=== PATIENT | female | born 1960 ===

== ENCOUNTER 2025-02-14 12:02 | Outpatient (AMB) | payer MEDICARE, SELFPAY ==
--- NOTE | 2025-02-14 12:10 | A.OFFVIS_ITS ---
Vital Signs 02/14/25 12:12 Pulse 60 Intake Visit Reasons: 6 Months/ [facility] Allergies No Known Allergies Allergy (Verified 02/07/25 09:20) Medication List - Last Reconciled 02/14/25 by Migue Manzano MD propranolol ER 60 mg PO DAILY HPI Comments Details: The patient is a 68-year-old female presenting with a tremor. She has noted an improvement in the severity of the tremor compared to her previous visit. She is prescribed propranolol at a 60 mg daily dosage on an extended-release basis. The patient's subjective experience of her tremor suggests some remaining presence, although not currently causing significant distress. There were no additional details provided regarding the onset or other specifics of the tremor's impact on her life. [facility] Medical History (Updated 02/14/25 @ 12:11 by Migue Manzano MD) Benign familial tremor Review of Systems Const Details: - Neurologic: Reports improvement in tremor; taking propranolol 60 mg daily Physical Exam Neuro Other: Mental Status: Alert and oriented to person, place, and time. Normal attention. Normal spontaneous speech, fluency, and comprehension. No obvious issues with mood and memory. Affect is appropriate. Cranial Nerves: CN II: Visual hale full to confrontation, visual acuity intact. CN III, IV, : Pupils equal, round, reactive to light and accommodation. Extraocular movements are normal. CN V: Facial sensation is normal. CN VII: Facial movements symmetrical. CN VIII: Hearing intact to bedside conversation is normal. CN IX, X: Palate elevates symmetrically. CN XI: Shoulder shrug and head turn symmetrical. CN XII: Tongue midline without atrophy or fasciculations. Mild speech tremor and mild postural hand tremor Assessment & Plan Assessment & Plan (1) Benign essential tremor: Code(s): G25.0 - Essential tremor Category: Medical Plan Impression: Benign essential tremor Rec: Propranalol ER 60mg one a day Medications: New propranolol ER 60 mg PO DAILY 90 caps 3RF Coding Level of Care Code Est Pt Level 3 (37642) Diagnoses Benign essential tremor G25.0
[2025-02-14 12:12] VITALS: PULSE 60
== END 2025-02-14 12:13 | disposition home or self-care (01) ==
LOC: HO.HSM 12:02
PROVIDERS: PCP Internal Medicine; Referring Provider Internal Medicine; Visit Provider Psychiatry & Neurology Neurology
DX: G25.0 Essential tremor (principal)
CPT/HCPCS: 99213

== ENCOUNTER → 2025-02-14 12:02 | Outpatient (BNVA) | payer MEDICARE, SELFPAY | PROVIDERS: PCP Internal Medicine; Referring Provider Internal Medicine; Visit Provider Psychiatry & Neurology Neurology | DX: G25.0 Essential tremor (principal); Z79.899 Other long term (current) drug therapy | CPT/HCPCS: 99212 ==